=== PATIENT | male | born 1990 | race Caucasian/White ===

== ENCOUNTER 2018-04-09 05:55 | Emergency (ER) | payer BC ==
[~2018-04-09] VITALS: Ht 185.4 cm; Wt 75.0 kg
[2018-04-09 06:02] VITALS: TEMP 97.5
[2018-04-09] MEDS ORDERED: ALMACONE 360 M360 ML PO ×2 (06:35→06:36)
[2018-04-09 06:36] LABS: BASO % 0.2 % (0.0-2.0); EOS # 0.1 (0.0-0.7); EOS % 0.4 % (0-4.0); HEMOGLOBIN 14.8 g/dl (13.5-18.0); LYMPH # 1.6 (1.2-3.4); LYMPH % 14.3 % (20.0-51.0); MEAN CELL VOLUME 90 fl (80.0-100.0); MEAN CORPUSCULAR HEMOGLOBIN 31 pg (27.0-31.0); MEAN CORPUSCULAR HGB CONC 34 g/dl (33.0-37.0); MEAN PLATELET VOLUME 10.4 fl (7.4-10.4); MONO # 0.7 (0.1-0.6); MONO % 5.8 % (1.7-9.3); PLATELET COUNT 217 K/mm3 (130-400); RED BLOOD COUNT 4.79 M/mm3 (4.20-5.60); REDCELL DISTRIBUTION WIDTH-CV 12.2 % (11.5-14.5)
[2018-04-09 06:52] LABS: ALBUMIN 4.3 gm/dL (3.5-5.0); BILIRUBIN,TOTAL 0.4 mg/dL (0.0-1.0); C-REACTIVE PROTEIN 1.6 mg/dL (0.0-0.9); CALCIUM 9.2 mg/dL (8.4-10.2); CREATININE, serum 1.06 mg/dL (0.66-1.25); POTASSIUM 3.6 mmol/L (3.4-5.0); TOTAL PROTEIN 7.4 gm/dL (6.4-8.2)
[2018-04-09] MEDS ORDERED: ZOFRAN ODT4 MG PO (07:38)
[2018-04-09] MEDS ORDERED: NORCO 325 MG-51 TAB PO (07:38)
[2018-04-09 07:43] LABS: COLLECTION METHOD CLEAN CATCH
[2018-04-09 07:49] LABS: MUCOUS Present /lpf; PH 7 (5-8); SQUAMOUS EPITHELIAL None Seen /hpf; URINE APPEARANCE Clear; URINE BACTERIA None Seen /hpf; URINE BILIRUBIN Negative (NEGATIVE); URINE BLOOD 3+ (NEGATIVE); URINE COLOR Yellow; URINE GLUCOSE Negative (NEGATIVE); URINE KETONE Negative (NEGATIVE); URINE LEUKOCYTE ESTERASE Negative (NEGATIVE); URINE NITRATE Negative (NEGATIVE); URINE PROTEIN(semi-quant) Negative (NEGATIVE); URINE RBC >50 /hpf
[2018-04-09 08:28] VITALS: BP 146/92; PULSE 88
== END 2018-04-09 08:23 | disposition home or self-care (01) ==
LOC: COL.ER 05:55
PROVIDERS: Emergency Medicine
DX: N13.2 Hydronephrosis with renal and ureteral calculous obstruction (principal)
CPT/HCPCS: J1885; J2405; J3010; J7030; Q9967

== ENCOUNTER 2023-12-21 16:45 | Emergency (ER) | payer SELFPAY ==
[~2023-12-21] VITALS: Ht 182.9 cm; Wt 77.3 kg
[~2023-12-21 16:45] MED LIST: ALMACONE 360 M360 ML PO; NORCO 325 MG-51 TAB PO; ZOFRAN ODT4 MG PO
[2023-12-21 16:48] VITALS: TEMP 97.4
[2023-12-21 18:30] VITALS: BP 156/107
[2023-12-21] MEDS ORDERED: Ibuprofen 600 MG TAB PO ONE (18:30)
[2023-12-21] MEDS ORDERED: Home HYDROcodone/Acetaminophen 5/325 MG #4 TABS/PACK PO ONE (19:00)
[2023-12-21 20:00] VITALS: PULSE 84
== END 2023-12-21 19:20 | disposition home or self-care (01) ==
LOC: COL.ER 16:45
DX: S42.001A Fracture of unspecified part of right clavicle, initial encounter for closed fracture (principal); S01.01XA Laceration without foreign body of scalp, initial encounter; V86.55XA Driver of 3- or 4- wheeled all-terrain vehicle (ATV) injured in nontraffic accident, initial encounter; Y92.410 Unspecified street and highway as the place of occurrence of the external cause